=== PATIENT | male | born 1985 | race Caucasian/White ===

== ENCOUNTER 2016-03-18 22:32 | Emergency (ER) | payer MEDICAID ==
[2016-03-18 22:38] VITALS: BP 124/76; PULSE 75; RESP 16; TEMP 97.5; O2SAT 96
--- NOTE | 2016-03-18 22:57 | DX ---
Left ankle, three views. History: trauma, pain Findings: Ankle mortice is intact. Small chip avulsion from the undersurface of the lateral malleolu s, with lateral soft tissue swelling. Impression: Small chip avulsion from the lateral malleolus with lateral soft tissue swelling.
[2016-03-18] MEDS ORDERED: IBUPROFEN 600 MG TAB PO ONE (23:04)
--- NOTE | 2016-03-18 23:19 | EDPHY ---
General Narrative: CHIEF COMPLAINT: Left ankle pain HISTORY OF PRESENT ILLNESS: playing basketball earlier this evening when he landed awkwardly on it, causing an inversion injury. Sudden onset of pain over the lateral malleolus. No pain of the mid foot, heel or medial malleolus. Moderate to severe pain able to walk but painful to do so. Does not radiate. No pain of the proximal fibula. No pain to the ipsilateral knee or hip. No use of blood thinners. Worse with any palpation or movement. Improved at rest. No other associated complaints or modifying factors. Did take ibuprofen this evening upon arrival here PRIOR ORTHO INJURIES: ankle sprains ESTABLISHED ORTHOPEDIST: none REVIEW OF SYSTEMS: Ten systems reviewed and are negative unless otherwise noted in the HPI EXAMINATION General Appearance: Alert, no distress Head: normocephalic, atraumatic Eyes: Pupils equal and round, no conjunctival pallor or injection Neck: Normal inspection Respiratory: No dyspnea or retractions. No distress Cardiovascular: Pulses normal throughout with symmetric PT, DP and radial pulses at 2+. Brisk cap refill Gastrointestinal: No distention Neurological: A&O, sensory symmetric, strength symmetric Skin: Warm and dry, no rash. Edema over the left lateral malleolus. No ecchymosis, abrasion or laceration Extremities: moderate tenderness to palpation over the left lateral malleolus. No erythema or laceration. There is no crepitus. No midfoot tenderness. No heel tenderness. No proximal fibular tenderness. Range of motion on the right leg and both upper extremities are within normal limits. Psychiatric: Mood and affect normal MDM: 11:15 pm inversion injury with very small, avulsion fracture off the distal portion of the fibula. No proximal fibular injury. No tenderness of the medial malleolus. Range of motion intact. No midfoot or calcaneal tenderness. He will be discharged home in a [place] boot with instructions to follow up with Orthopedics for definitive care. Return to ER for worsening pain, swelling, numbness, tingling. Patient comfortable with this plan and discharged home stable condition ED Precautions: Worsening pain. Erythema, edema, cyanosis, pallor, paresthesia or anesthesia. SUPERVISION: This patient was independently evaluated without the aide of supervising physician. - History Smoking Status: Current every day smoker - Objective Vital Signs: Initial Vital Signs Temperature (C) 97.5 F 03/18/16 22:36 Heart Rate 75 03/18/16 22:36 Respiratory Rate 16 03/18/16 22:36 Blood Pressure 124/76 H 03/18/16 22:36 O2 Sat (%) 96 03/18/16 22:36 O2 Delivery Mode Room Air Allergies/Adverse Reactions: amoxicillin [Amoxicillin] Allergy (Unknown, Verified 09/26/11 19:58) sulfamethoxazole [From Septra] Allergy (Verified 09/26/11 19:58) trimethoprim [From Septra] Allergy (Verified 09/26/11 19:58) Home Medications: Medication Instructions Recorded Gabapentin 03/18/16 Ibuprofen 800 mg PO Q8 PRN #20 tablet 03/18/16 traMADol [Ultram 50 mg (*)] 50 mg PO Q4 PRN #20 tab 03/18/16 Medications Given: Discontinued Medications Ibuprofen (Motrin) 600 mg PO EDNOW ONE Stop: 03/18/16 23:05 Last Admin: 03/18/16 23:08 Dose: 600 mg Departure - Departure Disposition: Home, Routine, Self-Care Clinical Impression: Fracture of distal end of fibula, Sprained ankle Condition: Good Instructions: Ankle Fracture (ED) Additional Instructions: Follow-up with Orthopedics for definitive care. Return to the ER for precautions as discussed. Ice, elevate, ibuprofen and as needed Ultram as prescribed Referrals: NONE *PRIMARY CARE P,. [Primary Care Provider] - As per Instructions Finesse Oakley MD [Medical Doctor] - As per Instructions Prescriptions: Ibuprofen 800 mg PO Q8 PRN #20 tablet PRN Reason: Pain, Mild traMADol [Ultram 50 mg (*)] 50 mg PO Q4 PRN #20 tab PRN Reason: Pain, Moderate
== END 2016-03-18 23:46 | disposition home or self-care (01) ==
DX: S82.832A Other fracture of upper and lower end of left fibula, initial encounter for closed fracture (principal); S93.402A Sprain of unspecified ligament of left ankle, initial encounter; F17.200 Nicotine dependence, unspecified, uncomplicated; X58.XXXA Exposure to other specified factors, initial encounter; Y93.67 Activity, basketball
CPT/HCPCS: L4386

== ENCOUNTER 2016-10-14 09:14 | Emergency (ER) | payer MEDICAID ==
[2016-10-14 09:20] VITALS: PULSE 69; RESP 18; TEMP 98.4
[2016-10-14] MEDS ORDERED: KETOROLAC 30 MG/1 ML SDV IVP ONE (09:25)
[2016-10-14] MEDS ORDERED: NS 1,000 ML IV ONE (09:25)
[2016-10-14] MEDS: ONDANSETRON 4 MG/2 ML VIAL IVP ONE ×2 (09:38→09:39)
--- NOTE | 2016-10-14 10:24 | EDPHY ---
H & P Stated Complaint: laceration last evening to r index finger Time Seen by Provider: 10/14/16 09:21 HPI/ROS: Chief complaint: Right finger laceration History of present illness: 31-year-old male presents to the emergency department for right finger laceration. Last night he was using a knife when it slipped and cut his right pointer finger. There has been mild pain. Bleeding that has been controlled with a dressing. He denies other associated signs or symptoms including no abnormal coolness or paresthesias. No difficulty moving the fingers. His arrival here he started to feel nauseated is developed a slight headache. We used to have migraines although has been long time since he has had migraines. He describes current symptoms is very mild. He denies fevers or cold symptoms. He denies trauma. He denies other neurologic symptoms such as paresthesias, weakness or paralysis or bowel or bladder dysfunction. Review of systems: A 10 point review of systems was obtained and other than described above was negative - Personal History Current Tetanus/Diphtheria Vaccine: Yes Tetanus Vaccine Date: 2014 - Medical/Surgical History Hx Asthma: Yes Hx Chronic Respiratory Disease: No Hx Diabetes: No Hx Cardiac Disease: No Hx Renal Disease: No Hx Cirrhosis: No Hx Alcoholism: No Hx HIV/AIDS: No Hx Splenectomy or Spleen Trauma: No Other PMH: shingles 02/2014 - Social History Smoking Status: Former smoker - Physical Exam Exam: General Appearance: Alert, nontoxic. Eyes: Pupils equal and round no pallor or injection. ENT, Mouth: Mucous membranes moist. Respiratory: There are no retractions, lungs are clear to auscultation. Cardiovascular: Regular rate and rhythm. Gastrointestinal: Abdomen is soft and non tender, no masses, bowel sounds normal. Neurological: Alert and oriented x4. Cranial nerves 2-12 grossly intact. Strength and sensation intact and symmetrical. Sensation intact in the right pointer finger using light touch and two-point discrimination. Skin: Warm and dry, no rashes. Musculoskeletal: Patient is flexing and extending his right pointer finger in the DIPJ, PIP and MCP joint well. Psychiatric: Patient is oriented X 3, there is no agitation. Constitutional: Initial Vital Signs Temperature (C) 36.9 C 10/14/16 09:18 Heart Rate 69 10/14/16 09:18 Respiratory Rate 18 10/14/16 09:18 Blood Pressure 121/84 H 10/14/16 09:18 O2 Sat (%) 99 10/14/16 09:18 O2 Delivery Mode Room Air Allergies/Adverse Reactions: amoxicillin [Amoxicillin] Allergy (Unknown, Verified 10/14/16 09:16) sulfamethoxazole [From Septra] Allergy (Verified 10/14/16 09:16) trimethoprim [From Septra] Allergy (Verified 10/14/16 09:16) Home Medications: Medication Instructions Recorded Gabapentin 03/18/16 Ibuprofen 800 mg PO Q8 PRN #20 tablet 03/18/16 Medical Decision Making ED Course/Re-evaluation: Patient seen under the supervision of my secondary supervising physician Dr. Rosalba Silva. Patient presents to the emergency department for laceration to his right pointer finger. The finger is neurovascularly intact. He has good musculoskeletal control. His tetanus is already up-to-date. Wound is cleaned. It approximates well. Given length of time since initial injury I will not primary close it. We have discussed secondary intention closure or delayed primary closure. He has developed nausea and a slight headache in the emergency room. It is described as mild in nature. He has a nonfocal neurologic exam. I do not appreciate red flag risk factors suggestive of severe cause of headache such as thunderclap in nature, fever or cold symptoms or trauma. I do not believe imaging studies, labs or LP are warranted. He is symptomatically treated with complete resolution of symptoms. He is discharged home. Follow up was discussed. Return precautions are given. Patient voiced understanding and agreement with plan. Differential Diagnosis: Included but not limited to laceration, deep structure injury, foreign body contamination, tension headache, migraine headache, cluster headache, unlikely meningitis, intracranial bleed or mass - Data Points Medications Given: Discontinued Medications Sodium Chloride (Ns) 1,000 mls @ 0 mls/hr IV ONCE ONE; Wide Open PRN Reason: Protocol Stop: 10/14/16 09:26 Last Admin: 10/14/16 09:37 Dose: 1,000 mls Ketorolac Tromethamine (Toradol) 15 mg IVP EDNOW ONE Stop: 10/14/16 09:26 Last Admin: 10/14/16 09:39 Dose: 15 mg Ondansetron HCl (Zofran) 4 mg IVP EDNOW ONE Stop: 10/14/16 09:26 Last Admin: 10/14/16 09:39 Dose: Not Given Departure - Departure Disposition: Home, Routine, Self-Care Clinical Impression: Finger laceration Qualifiers: Encounter type: initial encounter Finger: index finger Damage to nail status: without damage Foreign body presence: without foreign body Laterality: right Qualified Code(s): S61.210A - Laceration without foreign body of right index finger without damage to nail, initial encounter Headache Qualifiers: Headache type: unspecified Headache chronicity pattern: unspecified pattern Intractability: not intractable Qualified Code(s): R51 - Headache Condition: Good Instructions: Acute Headache (ED), Finger Laceration (ED) Additional Instructions: Follow-up with the primary care doctor for recheck of your headache You can follow up with a hand doctor for recheck of your finger If symptoms worsen or new symptoms develop return to the emergency room for recheck Referrals: [facility] [Other] - As per Instructions Ivory James MD [Medical Doctor] - As per Instructions
[2016-10-14 10:44] VITALS: BP 110/59; O2SAT 96
== END 2016-10-14 10:42 | disposition home or self-care (01) ==
DX: S61.210A Laceration without foreign body of right index finger without damage to nail, initial encounter (principal); R51 Headache; J45.909 Unspecified asthma, uncomplicated; E86.9 Volume depletion, unspecified; Z87.891 Personal history of nicotine dependence; W26.0XXA Contact with knife, initial encounter
CPT/HCPCS: 96374; J1885; J2405